=== PATIENT | female | born 1945 | race Caucasian/White ===

== ENCOUNTER 2017-11-03 20:23 | Emergency (ER) | payer OTHER ==
[~2017-11-03] VITALS: Ht 149.9 cm; Wt 56.7 kg
== END 2017-11-03 21:38 | disposition left against medical advice (07) ==
LOC: ER 20:23
DX: S01.01XA Laceration without foreign body of scalp, initial encounter (principal); F17.210 Nicotine dependence, cigarettes, uncomplicated; Z23 Encounter for immunization; W18.39XA Other fall on same level, initial encounter; Y93.89 Activity, other specified; Y92.89 Other specified places as the place of occurrence of the external cause; Y99.8 Other external cause status

== ENCOUNTER 2017-11-13 14:33 | Emergency (ER) | payer OTHER ==
[~2017-11-13] VITALS: Ht 149.9 cm; Wt 56.7 kg
[2017-11-13] MEDS ORDERED: LISINOPRIL10 MG PO (14:35)
[2017-11-13] MEDS ORDERED: ASPIR 8181 MG PO (14:36)
== END 2017-11-13 15:43 | disposition home or self-care (01) ==
LOC: ER 14:33
DX: S01.91XD Laceration without foreign body of unspecified part of head, subsequent encounter (principal); X58.XXXD Exposure to other specified factors, subsequent encounter; F17.210 Nicotine dependence, cigarettes, uncomplicated

== ENCOUNTER 2018-07-02 07:40 | Emergency (ER) | payer OTHER ==
[~2018-07-02] VITALS: Ht 149.9 cm; Wt 59.0 kg
[~2018-07-02 07:40] MED LIST: ASPIR 8181 MG PO; LISINOPRIL10 MG PO
[2018-07-02 08:13] LABS: URINE BILIRUBIN NEGATIVE (Negative); URINE BLOOD 3+ (Negative); URINE CLARITY CLOUDY; URINE GLUCOSE-RANDOM* NEGATIVE (Negative); URINE KETONES NEGATIVE (Negative); URINE NITRITE-REFLEX NEGATIVE (Negative); URINE PROTEIN (DIPSTICK) 2+ (Negative); URINE SPECIFIC GRAVITY >= 1.030 (1.005-1.035); URINE UROBILINOGEN 0.2 E.U./dl (0.2-1.0)
[2018-07-02 08:14] LABS: URINE LEUKOCYTES-REFLEX TRACE (Negative)
[2018-07-02 08:15] LABS: URINE COLOR AMBER
[2018-07-02 08:23] LABS: CASTS None Seen /LPF (None Seen); SQUAMOUS 4-10 Moderate /LPF (0-3)
[2018-07-02 08:24] LABS: BACTERIA-REFLEX >30 Many /HPF (None Seen); CRYSTALS None Seen /LPF (None Seen); URINE RBC >20 Many /HPF (0-2)
[2018-07-02] MEDS ORDERED: ZOFRAN ODT4 MG PO (08:33)
[2018-07-02] MEDS ORDERED: KEFLEX500 M1 PO (08:33)
[2018-07-02] MEDS ORDERED: PYRIDIUM100 M1 PO (08:33)
[2018-07-02 09:01] VITALS: BP 187/82
== END 2018-07-02 09:02 | disposition home or self-care (01) ==
LOC: ER 07:40
PROVIDERS: Emergency Medicine
DX: N39.0 Urinary tract infection, site not specified (principal); R31.9 Hematuria, unspecified; F17.210 Nicotine dependence, cigarettes, uncomplicated; I10 Essential (primary) hypertension

== ENCOUNTER 2018-11-25 09:19 | Emergency (ER) | payer OTHER ==
[~2018-11-25] VITALS: Ht 149.9 cm; Wt 56.7 kg
[~2018-11-25 09:19] MED LIST changes: +KEFLEX500 M1 PO; +PYRIDIUM100 M1 PO; +ZOFRAN ODT4 MG PO
[2018-11-25 09:38] LABS: URINE BILIRUBIN NEGATIVE (Negative); URINE BLOOD 3+ (Negative); URINE COLOR YELLOW; URINE GLUCOSE-RANDOM* NEGATIVE (Negative); URINE KETONES NEGATIVE (Negative); URINE LEUKOCYTES-REFLEX TRACE (Negative); URINE NITRITE-REFLEX NEGATIVE (Negative); URINE PROTEIN (DIPSTICK) TRACE (Negative); URINE UROBILINOGEN 0.2 E.U./dl (0.2-1.0)
[2018-11-25 09:39] LABS: URINE CLARITY SL HAZY
[2018-11-25 10:03] LABS: BACTERIA-REFLEX 1-9 Few /HPF (None Seen); CASTS None Seen /LPF (None Seen); CRYSTALS None Seen /LPF (None Seen); SQUAMOUS 0-3 Few /LPF (0-3); URINE RBC 3-10 Few /HPF (0-2); URINE WBC-REFLEX None Seen /HPF (0-5)
[2018-11-25] MEDS ORDERED: KEFLEX500 M1 PO (10:18)
[2018-11-25] MEDS ORDERED: PHENAZOPYRIDIN200 M2 PO (10:18)
[2018-11-25 10:22] VITALS: BP 166/72
== END 2018-11-25 10:20 | disposition home or self-care (01) ==
LOC: ER 09:19
PROVIDERS: Student in an Organized Health Care Education/Training Program
DX: N39.0 Urinary tract infection, site not specified (principal); R31.9 Hematuria, unspecified; F17.210 Nicotine dependence, cigarettes, uncomplicated

== ENCOUNTER → 2019-06-21 | Outpatient (CLI) | payer OTHER ==
[~2019-06-21] MED LIST changes: +PHENAZOPYRIDIN200 M2 PO
== END ==
LOC: ULTRA 12:30
DX: I65.23 Occlusion and stenosis of bilateral carotid arteries (principal); I10 Essential (primary) hypertension